=== PATIENT | male | born 1960 | race African-American/Black ===

== ENCOUNTER 2022-09-26 16:50 | Inpatient (IN) | payer MEDICARE, MEDICAID, SELFPAY ==
--- NOTE | ~2022-09-26 | XR_ITS ---
EXAMINATION: XR chest 1V DATE: 09/26/2022 17:24 INDICATION: Chest pain and shortness of breath TECHNIQUE: frontal view of the chest was obtained. COMPARISON: Chest CT dated 09/14/2016 FINDINGS: Evaluation of the lower lung zones somewhat limited by patient body habitus. Borderline heart size wi th pulmonary vascular congestion. No definitive airspace opacities, pulmonary edema, pleural effusion or pneumothorax. Three lead pacemaker/AICD seen with leads projecting over the expected locations of the right atrial appendage, apex of the right ventricle and overlying the left ventricle likely havi ng traversed the coronary sinus. IMPRESSION: 1. Borderline heart size with pulmonary vascular congestion. Reviewed, dictated and finalized at location A.
--- NOTE | ~2022-09-26 | XR_ITS ---
EXAMINATION: XR chest 1V portable INDICATION: Productive cough TECHNIQUE: Portable AP chest at 1258 hours COMPARISON: 09/26/2022 FINDINGS: There are patchy bilateral airspace opacities of the lungs. Cardiomegaly is noted. No pleur al effusion or pneumothorax. A triple lead cardiac pacemaker of the left chest wall ends with leads i n expected locations. IMPRESSION: 1. Diffuse lung disease, consistent with atelectasis versus pneumonia versus pulmonary edema. Reviewed, dictated and finalized at location B. IMPRESSION: 1. Diffuse lung disease, consistent with atelectasis versus pneumonia versus pu lmonary edema.
[2022-09-26 16:52] VITALS: BP 117/69; PULSE 99; RESP 20; TEMP 36.6; O2SAT 97
--- NOTE | 2022-09-26 16:56 | ECG_ITS ---
Measurements Intervals Talent Rate: 74 P: OK: 0 QRS: 119 QRSD: 187 T: -55 QT: 486 QTc: 541 Interpretive Statements SUSPECT ATRIAL FIBRILLATION WITH CONTROLLED VENTRICULAR RESPONSE INTRINSIC INTRAVENTRICULAR CONDUCTION ALTERNATES WITH ELECTRONIC VENTRICULAR PACING APPROPRIATE SENSING AND PACING IS DEMONSTRATE ABNORMAL ECG ABNORMAL RHYTHM ECG NO PREVIOUS ECG AVAILABLE FOR COMPARISON Electronically Signed On 09-26-2022 17:21:12 CDT by Kulwant Banks M.D.
[2022-09-26 17:15] LABS: Basophils Percent Auto 0.4 % (0.2-1.2); Eosinophils Absolute Auto 0.1 K/mm3 (0-0.3); Eosinophils Percent Auto 2.2 % (0-4.4); Hematocrit 44.8 % (42.0-52.0); Hemoglobin 13.9 g/dL (14.0-18.0); Immature Granulocyte Absolute 0.02 K/mm3 (0.00-0.031); Immature Granulocyte Percent A 0.4 % (0-0.5); Lymphocytes Absolute Auto 1.14 K/mm3 (0.9-3.2); Lymphocytes Percent Auto 24.7 % (18.3-44.2); Mean Corpuscular Hemoglobin 28.1 pg (26-34); Mean Corpuscular Volume 90.5 fl (80-100); Mean Platelet Volume 10.4 fl (7.4-10.4); Monocytes Absolute Auto 0.6 K/mm3 (0.1-0.6); Monocytes Percent Auto 11.9 % (2.6-8.5); Neutrophils Absolute Auto 2.8 K/mm3 (1.3-6.7); Neutrophils Percent Auto 60.4 % (45.5-73.1); Platelet Count Result 166 k/mm3 (150-375); Red Blood Count 4.95 M/mm3 (4.6-6.20); Red Cell Distribution Width 15.9 % (11.5-14.5); White Blood Count 4.6 K/mm3 (4.5-10.0)
[2022-09-26 17:25] LABS: INR 1.5; Prothrombin Time 18.5 Seconds (11.1-14.7)
[2022-09-26 17:26] LABS: Partial Thromboplastin Time 38.1 SECONDS (22.3-36.8)
[2022-09-26 17:27] LABS: Alanine Aminotransferase 21 U/L (6-50); Albumin Level 3.6 g/dL (3.5-5.1); Alkaline Phosphatase 66 U/L (38-126); Anion Gap 3 mmol/L (8-16); Aspartate Amino Transferase 22 U/L (17-59); Bilirubin,Total 0.5 mg/dL (0.2-1.3); Blood Urea Nitrogen 17 mg/dL (9-20); Calcium 8.2 mg/dL (8.4-10.2); Carbon Dioxide 27 mmol/L (22-30); Chloride 105 mmol/L (98-107); Estimated CRCL calculation 128 ml/min; Estimated Glomerular Filt Rate > 60; Glucose 104 mg/dL (65-110); Lipase 32 U/L (23-300); Potassium 3.8 mmol/L (3.4-5.0); Sodium 135 mmol/L (137-145)
[2022-09-26 17:39] LABS: Troponin I < 0.012 ng/mL (0.000-0.034)
[2022-09-26 18:41] VITALS: BP 142/99; PULSE 87; RESP 33; TEMP 36.4; O2SAT 99
[2022-09-26 18:52] VITALS: O2SAT 100
[2022-09-26 18:56] LABS: NT Pro B Type Natriuretic Pept 1580 pg/mL (19.9-100)
--- NOTE | 2022-09-26 19:25 | PC.NURSE ---
This RN assumed care of patient. Pt report was taken from ROBINSON Valdez.
[2022-09-26] MEDS: BUMETANIDE INJ 1 MG/4 ML VIAL IV PUSH (19:43)
--- NOTE | 2022-09-26 20:05 | ED.GENADULT ---
HPI - General Adult General Chief complaint: Chest Pain Stated complaint: chest pain/SOB/COPD Time Seen by Provider: 09/26/22 18:59 History of Present Illness HPI narrative: This is a 62-year-old male with morbid obesity and heart failure presenting ED with lower extremity edema, chest pain and shortness of breath. Patient's has chronic respiratory failure due to CHF morbid obesity and is typically on 2 L nasal cannula. However last 3 days he says that his breathing has become worse. Additionally he has increased swelling of his legs. He has been taking 80 mg of Lasix per day. He is also concerned because he has skin breakdown of his right lower extremity the feels may be infected. He denies fever chills nausea vomiting or diarrhea. He does state that he has a intermittent sharp, chest pain and chest that radiates to his left shoulder is worse with movement. He is not currently having that pain. The patient is attempting to get into [facility] as he is no longer capable of taking care of self at home. Related Data Allergies Allergy/AdvReac Type Severity Reaction Status Date / Time No Known Allergies Allergy Verified 09/26/22 18:57 [facility] Past Medical History Medical History CHF (congestive heart failure) Morbid obesity Exam Narrative: APPEARANCE: No apparent distress. Head: atraumatic. EYES: EOMI, NOSE: Atraumatic NECK: Trachea midline RESPIRATORY: No increased rate of breathing , decreased respiratory sounds CARDIOVASCULAR: RRR, significant edema of the lower extremities although physical exam is difficult due to body habitus ABDOMINAL: Non-distended MUSCULOSKELETAl: No obvious deformities NEURO: Alert. Moving 4/4 extremities SKIN:: skin breakdown with granulation tissue on the posterior aspect of the right lower extremity PSYCHIATRIC: Normal affect Course Vital Signs Vital signs: Vital Signs Temperature 97.8 F 09/26/22 16:52 Pulse Rate 99 09/26/22 16:52 Respiratory Rate 20 09/26/22 16:52 Blood Pressure 117/69 09/26/22 16:52 Pulse Oximetry 97 09/26/22 16:52 Oxygen Delivery Room Air 09/26/22 16:52 Temperature 97.6 F 09/26/22 18:41 Pulse Rate 87 09/26/22 18:41 Respiratory Rate 33 H 09/26/22 18:41 Blood Pressure 142/99 H 09/26/22 18:41 Pulse Oximetry 100 09/26/22 18:52 Oxygen Delivery Nasal Cannula 09/26/22 18:52 Oxygen Flow Rate 2 09/26/22 18:52 Medical Decision Making MDM Narrative Medical decision making narrative: -Presentation: 62-year-old male with morbid obesity and CHF presenting with increased dyspnea and lower extremity edema. patient has skin breakdown and induration of the right lower extremity with foul smell. Will be started on antibiotics for cellulitis. Patient no longer taking care of himself and will need to be admitted for placement. -DDX includes but is not limited to: CHF, fluid overload, skin breakdown, cellulitis -Co-morbidities complicating care: morbid obesity, CHF, hypertension, CAD, COPD, history of blood clots on anticoagulation -Social determinants of health: lives at home, disabled -Independent interpretation of studies: CBC normal. Metabolic panel within normal limits. BNP elevated at 1500, troponins undetectable. Chest x-ray showed cardiomegaly and pulmonary vascular congestion. Independent EKG interpretation: Rhythm [sinus], Rate [74], [place] -[normal],QRS [wide], QTC [normal], T waves -[negative for concerning inversions], ST Segments - [Negative for concerning elevations] Final interpretations: paced rhythm -Discussion of Management/Consultants: adam Bennett -Interventions: Bumex 1 g, 1 ancef -Shared decision making / Disposition: patient will be admitted the hospital for further management of his CHF and chronic respiratory failure. Patient's leg will need to be evaluated by wound management. Vital Signs Vital Signs
[2022-09-26] MEDS: ceFAZolin 1 GM/NS 50 ML 1 GM/50 ML BAG IVPB (20:38)
--- NOTE | 2022-09-26 20:55 | PM.IMHP ---
H&P: HPI History of Present Illness Date/Time: 09/26/22 20:55 Chief Complaint: Leg wound. Narrative: This is a 62-year-old male with past medical history significant for morbid obesity, atrial fibrillation rate controlled anticoagulated, pacemaker insitu, type 2 diabetes mellitus, asthma, congestive heart failure. Patient presents to the emergency room with complaints of worsening right lower extremity edema with leg ulcer on fall summary discharge, patient denies any fevers, rigors, chills, cough, sputum production, shortness of breath, syncope, near syncope, no lightheadedness, no PND no orthopnea. Has had chest pain on and off localized to the retrosternal area, did not try anything at home for the pain he did take his usual medications. preliminary workup was significant for brain natriuretic peptide is 1580, troponins x2 less than 0.012, chest x-ray was significant for pulmonary vascular congestion rest of chemistry panel without any abnormalities most of the workup has been essentially nonrevealing. On physical exam patient was noted to have a skin tear in and ulcer of the right lower extremity with copious amount of foul odor discharge. Patient states that he has been like this for the last 3-4 days. Patient uses walker and cane as an aid, denies any falls recently. Patient is been admitted for further evaluation management and treatment. EXAMINATION: XR chest 1V DATE: 09/26/2022 17:24 INDICATION: Chest pain and shortness of breath TECHNIQUE: frontal view of the chest was obtained. COMPARISON: Chest CT dated 09/14/2016 FINDINGS: Evaluation of the lower lung zones somewhat limited by patient body habitus. Borderline heart size with pulmonary vascular congestion. No definitive airspace opacities, pulmonary edema, pleural effusion or pneumothorax. Three lead pacemaker/AICD seen with leads projecting over the expected locations of the right atrial appendage, apex of the right ventricle and overlying the left ventricle likely having traversed the coronary sinus.? IMPRESSION: 1. Borderline heart size with pulmonary vascular congestion. Rate 74 TX 0 QRSd 187 QT 486 QTc 541 --[place]-- P QRS 119 T -55 SUSPECT ATRIAL FIBRILLATION WITH CONTROLLED VENTRICULAR RESPONSE INTRINSIC INTRAVENTRICULAR CONDUCTION ALTERNATES WITH ELECTRONIC VENTRICULAR PACING APPROPRIATE SENSING AND PACING IS DEMONSTRATE ABNORMAL ECG ABNORMAL RHYTHM ECG NO PREVIOUS ECG AVAILABLE FOR COMPARISON Electronically Signed On 09-26-2022 17:21:12 CDT by Kulwant Banks Review of Systems Review of Systems: B/L LE edema, RLE wound, discharge. Constitutional: Constitutional: Denies chills, Denies fatigue, Denies fever(s), Denies frequent falls, Denies malaise, Denies night sweats and Denies weakness Eyes: Eyes: Denies change in vision ENT: Denies dysphagia, Denies vertigo, Denies dizziness and Denies odynophagia Cardiovascular: Cardiovascular: Reports leg ulcers, Reports leg edema, Denies lightheadedness, Denies radiating jaw, neck or arm pain and Denies palpitations Respiratory: Respiratory: Denies cough, Denies excessive phlegm production, Denies pain on inspiration and Denies dyspnea Gastrointestinal: Gastrointestinal: Denies abdominal pain, Denies dyspepsia, Denies heartburn, Denies diarrhea, Denies nausea and Denies vomiting Genitourinary: Genitourinary: Denies dysuria, Denies flank pain and Reports scrotal swelling Musculoskeletal: Musculoskeletal: Reports back pain Integumentary/Breasts: Skin/Breast: Reports skin ulcer (RLE) Neurologic: Denies vertigo, Denies dizziness, Denies focal weakness and Denies Sensory deficit (Neuro) Psychiatric: Psychiatric: Reports no additional psychiatric complaints and Reports as per HPI Endocrine: Endocrine: Denies cold intolerance, Denies flushing, Denies heat intolerance, Denies polyphagia, Denies polydipsia and Denies palpitations Hematologic/Lymphatic: Hematologic/Lymphatic: Reports no additional hematologic/
[2022-09-26 21:06] LABS: Troponin I < 0.012 ng/mL (0.000-0.034)
[2022-09-26 21:21] VITALS: O2SAT 98
[2022-09-26 21:50] VITALS: BMI 77.5
[2022-09-26 21:56] VITALS: BP 138/87; PULSE 75; RESP 20; TEMP 35.6; O2SAT 98
--- NOTE | 2022-09-26 22:04 | ADMGEN ---
This patient, Manny Garcia Sr., was admitted to Medical Room 251-01. Patient/family oriented to hospital policies and general routines including ID bracelet, bed and alarms, visiting hours, pain management, procedures, bathroom and other care routines, personal items, smoking policy, room service/diet, and visiting hours. Information on how to activate the Rapid Response Team has been discussed. Patient/Family are encouraged to report perceived risks to care and to ask questions if they do not understand what they are told or what they should do.
[2022-09-26] MEDS: ACETAMINOPHEN 500 MG TABLET 1000 MG PO (23:42)
[2022-09-27] VITALS (19 sets, daily range): BP systolic 107–118; BP diastolic 54–70; PULSE 70–97; RESP 18–20; TEMP 35.7–36.6; O2SAT 10–98
--- NOTE | 2022-09-27 | ECHO_ITS ---
Patient Info Name: Manny Garcia Age: 62 years : 1960 Gender: Male Ht: 71 in Wt: 556 lbs BSA: 3.72 m2 HR: 86 bpm BP: 111 / 70 mmHg Heart Rhythm: Indeterminant Technical Quality: Poor Exam Date: 09/27/2022 9:17 AM Exam Location: [facility] Pulmonary Patient Status: Inpatient Admit Date: 09/26/2022 Staff Ordering Physician: Abby Bennett MD Detective [place]: Billy Gunn RDCS Attending Provider: Abby Bennett MD Referring Physician: Donald CROWDER; Exam Type: CA echo doppler color flow Study Info Indications - Leg swelling Complete two-dimensional, color flow and Doppler transthoracic echocardiogram is performed. Reason for Poor Study: poor echocardiographic windows Summary 1. Technically very difficult study with limited views. Patient refused Definity. 2. There is mildly increased left ventricular wall thickness. 3. Left ventricular chamber dimension is moderately enlarged. 4. The left ventricular endocardial borders were not well visualized, and patient refused Definity. Unable to estimate left ventricular ejection fraction on this study. 5. Right ventricular chamber dimension is normal. 6. Right ventricular systolic function is normal. 7. Linear artifact in right ventricle suggestive of catheter(s), pacemaker lead(s), or ICD lead(s). 8. Linear artifact in the right atrium suggestive of catheter(s), pacemaker lead(s), or ICD lead(s). 9. No significant valvular disease appreciated on this study. Left Ventricle Left ventricular chamber dimension is moderately enlarged. There is mildly increased left ventricular wall thickness. The left ventricular endocardial borders were not well visualized, and patient refused Definity. Unable to estimate left ventricular ejection fraction on this study. Right Ventricle Linear artifact in right ventricle suggestive of catheter(s), pacemaker lead(s), or ICD lead(s). Right ventricular chamber dimension is normal. Right ventricular systolic function is normal. Left Atria Left atrial chamber dimension is normal. Right Atria Linear artifact in the right atrium suggestive of catheter(s), pacemaker lead(s), or ICD lead(s). Right atrial chamber dimension is normal. Atrial Septum Not well visualized. Aortic Valve The aortic valve is not well visualized. There is no aortic valve stenosis. There is no aortic valve regurgitation. Pulmonic Valve The pulmonic valve is not well visualized. Mitral Valve There is trace mitral valve regurgitation. The mitral valve annulus is mildly calcified. Tricuspid Valve There is trace tricuspid valve regurgitation. Pericardium/Pleural The pericardium appears epicardial fat pad. There is no pericardial effusion. Inferior Vena Cava Dilated inferior vena cava with >50% collapse upon inspiration consistent with elevated right atrial pressure, 8 mmHg. Aorta The aortic root size at the sinus of Valsalva is normal. Left Ventricular Outflow Tract Name Value Normal LVOT 2D LVOT Diameter 2.0 cm LVOT Doppler LVOT Peak Gradient 6 mmHg LVOT Mean Gradient 3 mmHg LVOT VTI 25 cm LVOT VTI/AV VTI Ratio
[2022-09-27 00:05] LABS: Troponin I < 0.012 ng/mL (0.000-0.034)
[2022-09-27] MEDS: HYDROcodone/acetaminophen (*CRX) 10-325 MG TABLET 1 TAB PO ×5 (00:47→20:45)
[2022-09-27] MEDS: LEVOTHYROXINE SODIUM 88 MCG TABLET PO (05:39)
[2022-09-27] MEDS: ceFAZolin 1 GM/NS 50 ML 1 GM/50 ML BAG IVPB (05:39)
[2022-09-27 07:55] LABS: Hematocrit 43.9 % (42.0-52.0); Hemoglobin 13.7 g/dL (14.0-18.0); Mean Corpuscular HGB Conc 31.2 g/dl (32-36); Mean Corpuscular Hemoglobin 28.5 pg (26-34); Mean Corpuscular Volume 91.3 fl (80-100); Mean Platelet Volume 10.4 fl (7.4-10.4); Platelet Count Result 150 k/mm3 (150-375); Red Blood Count 4.81 M/mm3 (4.6-6.20); Red Cell Distribution Width 15.8 % (11.5-14.5); White Blood Count 5.5 K/mm3 (4.5-10.0)
[2022-09-27 08:05] LABS: Alanine Aminotransferase 19 U/L (6-50); Albumin Level 3.4 g/dL (3.5-5.1); Alkaline Phosphatase 63 U/L (38-126); Anion Gap 2 mmol/L (8-16); Aspartate Amino Transferase 21 U/L (17-59); Bilirubin,Total 0.7 mg/dL (0.2-1.3); Blood Urea Nitrogen 14 mg/dL (9-20); Calcium 7.8 mg/dL (8.4-10.2); Carbon Dioxide 33 mmol/L (22-30); Chloride 103 mmol/L (98-107); Estimated CRCL calculation 138 ml/min; Estimated Glomerular Filt Rate > 60; Glucose 108 mg/dL (65-110); Potassium 3.8 mmol/L (3.4-5.0); Sodium 138 mmol/L (137-145)
[2022-09-27 08:39] LABS: Glucose Point of Care 106 mg/dl (65-105)
[2022-09-27] MEDS: BUMETANIDE 1 MG TABLET 2 MG PO (09:56)
[2022-09-27] MEDS: ASPIRIN 81 MG ENTERIC TABLET PO (09:57)
[2022-09-27] MEDS: AMIODARONE HCL 200 MG TABLET 400 MG BY MOUTH ×2 (09:57→16:15)
[2022-09-27] MEDS: SPIRONOLACTONE 50 MG TABLET 100 MG PO (09:57)
[2022-09-27] MEDS: carvediloL 12.5 MG TABLET PO ×2 (09:57→20:46)
[2022-09-27] MEDS: IPRATROPIUM BR 0.02% INH SOLN 0.5 MG/2.5 ML VIAL INHALATION ×2 (09:57→19:54)
[2022-09-27] MEDS: SACUBITRIL/VALSARTAN 49-51 MG TABLET 1 TABLET PO ×2 (09:58→16:15)
[2022-09-27] MEDS: ALBUTEROL SULFATE NEB 2.5 MG/3 ML INH INHALATION ×2 (09:58→19:54)
[2022-09-27] MEDS: ERYTHROMYCIN OPHTH OINTMENT 1 GM TUBE 1 APPLIC RIGHT EYE ×2 (09:58→16:15)
[2022-09-27 11:50] LABS: Glucose Point of Care 97 mg/dl (65-105)
[2022-09-27] MEDS: MICONAZOLE NITRATE 2% CREAM 30 GM TUBE 1 APPLIC TOPICAL ×2 (12:16→23:29)
--- NOTE | 2022-09-27 12:55 | PM.IMPN ---
Progress Note: A&P Assessment and Plan (1) Respiratory failure: Code(s): J96.90 - Respiratory failure, unspecified, unspecified whether with hypoxia or hypercapnia Status: Acute Assessment and Plan: Patient is usually on supplemental oxygen 2 L by nasal cannula as needed. Wean oxygen to maintain O2 saturation greater than 90%. Chest x-ray with borderline heart size and pulmonary vascular congestion. Unable to get bilateral lower extremity Doppler ultrasounds due to the size of patient's legs. (2) CHF (congestive heart failure): Code(s): I50.9 - Heart failure, unspecified Status: Acute Assessment and Plan: BNP only slightly elevated Started on Bumex 2 mg IV b.i.d.. Daily weights, strict I&Os, fall precautions Echocardiogram ordered. Keep potassium greater than 4 and serum magnesium greater than 2. Monitor kidney function while on IV Bumex (3) Adult failure to thrive: Code(s): R62.7 - Adult failure to thrive Status: Acute Assessment and Plan: PT OT consult supportive care likely secondary to patient's morbid obesity (4) Skin breakdown: Code(s): R23.8 - Other skin changes Status: Acute Assessment and Plan: Local care wound care consult Wound care believes that patient has skin breakdown is due to edema and not an acute infection. Antibiotics discontinued at this time and miconazole cream added (5) Morbid obesity: Code(s): E66.01 - Morbid (severe) obesity due to excess calories Status: Acute Assessment and Plan: 1800 calorie restricted diet Lifestyle and diet modifications (6) Type 2 diabetes mellitus: Code(s): E11.9 - Type 2 diabetes mellitus without complications Status: Acute Assessment and Plan: Insulin Lispro sliding scale, Accu-checks qAc and HS and Hold oral hypoglycemics Initiate hypoglycemic precautions Obtain a HgbA1c Hold Farxiga Subjective Date/time seen: 09/27/22 12:55 Interval history: Patient states that he is still experiencing some shortness of breath but it has improved since he came from the hospital. Patient believes that he will likely need rehab at discharge. He barely walks and uses a walker when necessary. He states that he does live alone and has the help of family and kennel helper. He denies orthopnea, chronic cough, chest pain, nausea vomiting. Review of Systems Review of Systems: All systems reviewed & are unremarkable except as noted in HPI and below Exam Narrative: GENERAL: Comfortable, no acute distress, morbid obesity HENMT: moist mucous membranes EYES: EOM intact b/l NECK: no lymphadenopathy RESPIRATORY: clear to auscultation CARDIO: RRR GI: soft, nontender, bowel sounds present SKIN: no rashes EXTREMITIES: +2 edema from mid thigh down, skin discoloration on the back sides of patient's bilateral legs as well as excoriation and skin breakdown on the back of right calf, right leg tenderness to palpation Objective Data Vital Signs Vital Signs: Vital Signs - 24 hr 09/26/22 16:52 09/26/22 18:41 09/26/22 18:52 Temperature 97.8 F 97.6 F Pulse Rate 99 87 Respiratory Rate 20 33 H Blood Pressure 117/69 142/99 H Pulse Oximetry 97 99 100 Oxygen Delivery Room Air Room Air Nasal Cannula Oxygen Flow Rate 2 09/26/22 21:21 09/26/22 21:56 09/26/22 22:13 Temperature 96.1 F L Pulse Rate 75 Respiratory Rate 20 Blood Pressure 138/87 Pulse Oximetry 98 98 Oxygen Delivery Room Air Room Air Oxygen Flow Rate 09/27/22 00:00 09/27/22 05:05 09/27/22 04:00 Temperature 96.3 F L Pulse Rate 79 86 78 Respiratory Rate 20 Blood Pressure 111/70 Pulse Oximetry 10 L Oxygen Delivery Oxygen Flow Rate 09/27/22 09:57 09/27/22 09:57 09/27/22 10:01 Temperature Pulse Rate 77 85 Respiratory Rate Blood Pressure Pulse Oximetry 95 Oxygen Delivery Nasal Cannu
--- NOTE | 2022-09-27 15:33 | PCPTNOTE ---
Attempted PT evaluation, pt refused stating he just got to the hospital and his wound will be wrapped tomorrow. Will follow.
[2022-09-27] MEDS: BUMETANIDE INJ 2.5 MG/10 ML VIAL 2 MG IV PUSH (16:14)
[2022-09-27] MEDS: RIVAROXABAN 20 MG TABLET PO (16:15)
[2022-09-27 17:09] LABS: Glucose Point of Care 89 mg/dl (65-105)
[2022-09-27] MEDS: FLUTICASONE PROPIONATE 0.05% NA SPR 16 GM BTL (*BKC) 1 SPRAY NASAL (20:46)
[2022-09-27 23:27] LABS: Glucose Point of Care 110 mg/dl (65-105)
[2022-09-28] VITALS (19 sets, daily range): BP systolic 100–108; BP diastolic 50–66; PULSE 70–95; RESP 14–20; TEMP 35.9–36.4; O2SAT 95–99
[2022-09-28 05:22] LABS: Basophils Percent Auto 0.4 % (0.2-1.2); Eosinophils Absolute Auto 0.2 K/mm3 (0-0.3); Eosinophils Percent Auto 3.5 % (0-4.4); Immature Granulocyte Absolute 0.02 K/mm3 (0.00-0.031); Immature Granulocyte Percent A 0.4 % (0-0.5); Lymphocytes Absolute Auto 1.31 K/mm3 (0.9-3.2); Lymphocytes Percent Auto 26.8 % (18.3-44.2); Mean Corpuscular HGB Conc 31.1 g/dl (32-36); Mean Corpuscular Hemoglobin 28.4 pg (26-34); Mean Corpuscular Volume 91.3 fl (80-100); Mean Platelet Volume 10.1 fl (7.4-10.4); Monocytes Absolute Auto 0.6 K/mm3 (0.1-0.6); Monocytes Percent Auto 11.5 % (2.6-8.5); Neutrophils Absolute Auto 2.8 K/mm3 (1.3-6.7); Neutrophils Percent Auto 57.4 % (45.5-73.1); Platelet Count Result 144 k/mm3 (150-375); Red Blood Count 4.93 M/mm3 (4.6-6.20); Red Cell Distribution Width 15.7 % (11.5-14.5); White Blood Count 4.9 K/mm3 (4.5-10.0)
[2022-09-28 05:32] LABS: Alanine Aminotransferase 17 U/L (6-50); Albumin Level 3.2 g/dL (3.5-5.1); Alkaline Phosphatase 56 U/L (38-126); Anion Gap 3 mmol/L (8-16); Aspartate Amino Transferase 18 U/L (17-59); Bilirubin,Total 0.5 mg/dL (0.2-1.3); Blood Urea Nitrogen 16 mg/dL (9-20); Calcium 7.7 mg/dL (8.4-10.2); Carbon Dioxide 29 mmol/L (22-30); Chloride 101 mmol/L (98-107); Estimated CRCL calculation 138 ml/min; Estimated Glomerular Filt Rate > 60; Glucose 115 mg/dL (65-110); Sodium 133 mmol/L (137-145)
[2022-09-28] MEDS: LEVOTHYROXINE SODIUM 88 MCG TABLET PO (05:55)
--- NOTE | 2022-09-28 06:15 | PC.NURSE ---
patient refused HS accucheck. states he is not diabetic and that his blood sugars have been normal this admission. states that he takes farxiga for kidney issues but not for diabetes.
[2022-09-28 08:07] LABS: Glucose Point of Care 101 mg/dl (65-105)
[2022-09-28] MEDS: SPIRONOLACTONE 50 MG TABLET 100 MG PO (08:33)
[2022-09-28] MEDS: ASPIRIN 81 MG ENTERIC TABLET PO (08:33)
[2022-09-28] MEDS: AMIODARONE HCL 200 MG TABLET 400 MG BY MOUTH ×2 (08:33→16:15)
[2022-09-28] MEDS: SACUBITRIL/VALSARTAN 49-51 MG TABLET 1 TABLET PO ×2 (08:33→16:15)
[2022-09-28] MEDS: ERYTHROMYCIN OPHTH OINTMENT 1 GM TUBE 1 APPLIC RIGHT EYE (08:34)
[2022-09-28] MEDS: MICONAZOLE NITRATE 2% CREAM 30 GM TUBE 1 APPLIC TOPICAL ×2 (08:34→19:58)
[2022-09-28] MEDS: IPRATROPIUM BR 0.02% INH SOLN 0.5 MG/2.5 ML VIAL INHALATION ×2 (08:48→21:01)
[2022-09-28] MEDS: ALBUTEROL SULFATE NEB 2.5 MG/3 ML INH INHALATION ×3 (08:48→21:01)
[2022-09-28] MEDS: BUMETANIDE INJ 2.5 MG/10 ML VIAL 2 MG IV PUSH ×2 (11:22→16:15)
--- NOTE | 2022-09-28 11:58 | PM.IMPN ---
Progress Note: A&P Assessment and Plan (1) Respiratory failure: Qualifiers: Chronicity: acute Respiratory failure complication: hypoxia Qualified Code(s): J96.01 - Acute respiratory failure with hypoxia Code(s): J96.90 - Respiratory failure, unspecified, unspecified whether with hypoxia or hypercapnia Status: Acute Assessment and Plan: Patient is usually on supplemental oxygen 2 L by nasal cannula as needed. Wean oxygen to maintain O2 saturation greater than 90%. Chest x-ray with borderline heart size and pulmonary vascular congestion. Unable to get bilateral lower extremity Doppler ultrasounds due to the patient's body habitus (2) CHF (congestive heart failure): Qualifiers: Heart failure type: unspecified Heart failure chronicity: acute on chronic Qualified Code(s): I50.9 - Heart failure, unspecified Code(s): I50.9 - Heart failure, unspecified Status: Acute Assessment and Plan: BNP only slightly elevated Started on Bumex 2 mg IV b.i.d.. Daily weights, strict I&Os, fall precautions Echocardiogram could not determine patient's ejection fraction, very limited exam. Keep potassium greater than 4 and serum magnesium greater than 2. Monitor kidney function while on IV Bumex Scrotal elevation for scrotal edema and support. (3) COPD (chronic obstructive pulmonary disease): Qualifiers: COPD type: unspecified COPD Qualified Code(s): J44.9 - Chronic obstructive pulmonary disease, unspecified Code(s): J44.9 - Chronic obstructive pulmonary disease, unspecified Status: Acute Assessment and Plan: Monitor vital signs, I&Os, neuro status and patient is a fall risk Monitor serum electrolytes, cultures and CBC Monitor Oxygen saturation, Oxygen via NC; wean oxygen as tolerated, keep SpO2 greater than 88% Duonebz q6H and Albuterol q2H prn Solu-Medrol 125 mg x 1 then 40 mg IVq12H (4) Adult failure to thrive: Code(s): R62.7 - Adult failure to thrive Status: Acute Assessment and Plan: PT OT consult supportive care likely secondary to patient's morbid obesity (5) Skin breakdown: Code(s): R23.8 - Other skin changes Status: Acute Assessment and Plan: Local care wound care consult Wound care believes that patient has skin breakdown is due to edema and not an acute infection. Antibiotics discontinued at this time and miconazole cream added (6) Morbid obesity: Code(s): E66.01 - Morbid (severe) obesity due to excess calories Status: Acute Assessment and Plan: 1800 calorie restricted diet Lifestyle and diet modifications (7) Type 2 diabetes mellitus: Code(s): E11.9 - Type 2 diabetes mellitus without complications Status: Acute Assessment and Plan: Insulin Lispro sliding scale, Accu-checks qAc and HS and Hold oral hypoglycemics Initiate hypoglycemic precautions Obtain a HgbA1c Hold Farxisc Subjective Date/time seen: 09/28/22 11:58 Interval history: Patient doing well today. Patient states that he has intermittent Chest pain and shortness of breath but he feels as if it is improving. On exam he did have diffuse expiratory wheezing. patient's troponin on admission were within normal limits. Patient states that when he moves it exacerbates his chest pain when he points to the chest pain is more towards his shoulder and is worse with range of motion. Patient states that he did not want to work with physical therapy due to his right lower extremity pain. He states that where his leg is excoriated is very painful and he would be unable to work with physical therapy. Talked to patient about working with therapy in hopes to get him in to a potential rehab. Patient stated that he would attempt to work with therapy today. Exam Narrative: GENERAL: Comfortable, no acute distress, morbid obesity [facility]
[2022-09-28] MEDS: methylPREDNISolone SOD SUCC 125 MG VIAL IV PUSH (12:32)
--- NOTE | 2022-09-28 13:25 | P.CDI_ITS ---
CDI Query Clarification Request Documented history of CHF. CHF noted on the assessment and plan. Elevated BNP on 09/26/22 lab work. Bumex listed as a home medication. Patient receiving Bumex. Pulmonary vascular congestion noted on the 09/26 chest xray. Please specify type and acuity of heart failure if known. * Acute * Chronic * Acute on Chronic * Unknown * Systolic * Diastolic * Combined Systolic and Diastolic * Unknown
[2022-09-28] MEDS: HYDROcodone/acetaminophen (*CRX) 10-325 MG TABLET 1 TAB PO ×2 (15:39→19:56)
[2022-09-28] MEDS: RIVAROXABAN 20 MG TABLET PO (16:15)
[2022-09-28] MEDS: FLUTICASONE PROPIONATE 0.05% NA SPR 16 GM BTL (*BKC) 1 SPRAY NASAL (19:57)
[2022-09-28] MEDS: CALCIUM CARBONATE (TUMS) 500 MG (200 MG ELEMENTAL) PO (22:33)
[2022-09-29] VITALS (19 sets, daily range): BP systolic 101–122; BP diastolic 60–83; PULSE 66–97; RESP 16–18; TEMP 36.4–36.6; O2SAT 95–100
[2022-09-29] MEDS: HYDROcodone/acetaminophen (*CRX) 10-325 MG TABLET 1 TAB PO ×4 (02:02→21:55)
[2022-09-29] MEDS: LEVOTHYROXINE SODIUM 88 MCG TABLET PO (05:08)
[2022-09-29 05:18] LABS: Hematocrit 45.8 % (42.0-52.0); Hemoglobin 14.6 g/dL (14.0-18.0); Mean Corpuscular HGB Conc 31.9 g/dl (32-36); Mean Corpuscular Hemoglobin 28.3 pg (26-34); Mean Corpuscular Volume 88.8 fl (80-100); Mean Platelet Volume 10.5 fl (7.4-10.4); Platelet Count Result 184 k/mm3 (150-375); Red Blood Count 5.16 M/mm3 (4.6-6.20); Red Cell Distribution Width 15.2 % (11.5-14.5); White Blood Count 4.4 K/mm3 (4.5-10.0)
[2022-09-29 05:34] LABS: Alanine Aminotransferase 20 U/L (6-50); Albumin Level 3.5 g/dL (3.5-5.1); Alkaline Phosphatase 60 U/L (38-126); Anion Gap 1 mmol/L (8-16); Aspartate Amino Transferase 21 U/L (17-59); Bilirubin,Total 0.4 mg/dL (0.2-1.3); Blood Urea Nitrogen 19 mg/dL (9-20); Calcium 7.9 mg/dL (8.4-10.2); Carbon Dioxide 32 mmol/L (22-30); Chloride 98 mmol/L (98-107); Estimated CRCL calculation 152 ml/min; Estimated Glomerular Filt Rate > 60; Glucose 167 mg/dL (65-110); Potassium 4.2 mmol/L (3.4-5.0); Sodium 131 mmol/L (137-145)
[2022-09-29 07:53] LABS: Hemoglobin A1C 6.1 % (<5.7)
[2022-09-29] MEDS: AMIODARONE HCL 200 MG TABLET 400 MG BY MOUTH ×2 (08:02→18:00)
[2022-09-29] MEDS: SPIRONOLACTONE 50 MG TABLET 100 MG PO (08:03)
[2022-09-29] MEDS: ASPIRIN 81 MG ENTERIC TABLET PO (08:04)
[2022-09-29] MEDS: SACUBITRIL/VALSARTAN 49-51 MG TABLET 1 TABLET PO ×2 (08:04→18:14)
[2022-09-29] MEDS: MICONAZOLE NITRATE 2% CREAM 30 GM TUBE 1 APPLIC TOPICAL (08:09)
[2022-09-29] MEDS: ERYTHROMYCIN OPHTH OINTMENT 1 GM TUBE 1 APPLIC RIGHT EYE ×2 (08:19→20:11)
[2022-09-29] MEDS: BUMETANIDE INJ 2.5 MG/10 ML VIAL 2 MG IV PUSH ×2 (08:19→18:15)
[2022-09-29] MEDS: IPRATROPIUM BR 0.02% INH SOLN 0.5 MG/2.5 ML VIAL INHALATION ×2 (08:42→20:47)
[2022-09-29] MEDS: ALBUTEROL SULFATE NEB 2.5 MG/3 ML INH INHALATION ×2 (08:42→20:47)
--- NOTE | 2022-09-29 13:46 | PM.IMPN ---
Progress Note: A&P Assessment and Plan (1) Respiratory failure: Qualifiers: Chronicity: acute Respiratory failure complication: hypoxia Qualified Code(s): J96.01 - Acute respiratory failure with hypoxia Code(s): J96.90 - Respiratory failure, unspecified, unspecified whether with hypoxia or hypercapnia Status: Acute Assessment and Plan: Patient is usually on supplemental oxygen 2 L by nasal cannula as needed. Wean oxygen to maintain O2 saturation greater than 90%. Chest x-ray with borderline heart size and pulmonary vascular congestion. Unable to get bilateral lower extremity Doppler ultrasounds due to the patient's body habitus. (2) CHF (congestive heart failure): Qualifiers: Heart failure chronicity: acute on chronic Heart failure type: unspecified Qualified Code(s): I50.9 - Heart failure, unspecified Code(s): I50.9 - Heart failure, unspecified Status: Acute Assessment and Plan: BNP only slightly elevated. Started on Bumex 2 mg IV b.i.d. Daily weights, strict I&Os, fall precautions. Echocardiogram could not determine patient's ejection fraction, very limited exam. Keep potassium greater than 4 and serum magnesium greater than 2. Monitor kidney function while on IV Bumex. Scrotal elevation for scrotal edema and support. (3) COPD (chronic obstructive pulmonary disease): Qualifiers: COPD type: unspecified COPD Qualified Code(s): J44.9 - Chronic obstructive pulmonary disease, unspecified Code(s): J44.9 - Chronic obstructive pulmonary disease, unspecified Status: Acute Assessment and Plan: Monitor Oxygen saturation, Oxygen via NC; wean oxygen as tolerated, keep SpO2 greater than 88% Duonebz q6H and Albuterol q2H prn Patient refuses to take steroids due to stomach upset (4) Adult failure to thrive: Code(s): R62.7 - Adult failure to thrive Status: Acute Assessment and Plan: PT OT consult supportive care likely secondary to patient's morbid obesity (5) Skin breakdown: Code(s): R23.8 - Other skin changes Status: Acute Assessment and Plan: Local care Wound care consult Wound care believes that patient has skin breakdown is due to edema and not an acute infection. Antibiotics discontinued at this time and miconazole cream added (6) Morbid obesity: Code(s): E66.01 - Morbid (severe) obesity due to excess calories Status: Acute Assessment and Plan: 1800 calorie restricted diet Lifestyle and diet modifications (7) Type 2 diabetes mellitus: Code(s): E11.9 - Type 2 diabetes mellitus without complications Status: Acute Assessment and Plan: Insulin Lispro sliding scale, Accu-checks qAc and HS and Hold oral hypoglycemics Initiate hypoglycemic precautions HgbA1c 6.1 Hold Farxiga Subjective Date/time seen: 09/29/22 13:46 Interval history: Patient states that he is feeling better today. Patient did not want to take the steroids due to it causing upset stomach. He still has some mild expiratory wheezing that is likely due from his COPD/CHF. Patient states that he is breathing more easy today. Patient continues to have pain on the back of his right calf. He is working with PT and OT. I believe the best thing for the patient would be getting into a rehab and getting him back on his feet. Exam Narrative: GENERAL: Comfortable, no acute distress, morbid obesity HENMT: moist mucous membranes EYES: EOM intact b/l NECK: no lymphadenopathy RESPIRATORY: Diffuse expiratory wheezes CARDIO: RRR GI: soft, nontender, bowel sounds present SKIN: no rashes EXTREMITIES: +1 edema from mid thigh down, skin discoloration on the back sides of patient's bilateral legs as well as excoriation and skin breakdown on the back of right calf, right leg tenderness to palpation. Scrotal edema present. Objecti
--- NOTE | 2022-09-29 14:28 | PC.NURSE ---
patient alert and oriented x4, VSS. patient refusing accu checks and any medication that can increase glucose level. Education given about why it was ordered. Patient states he is not a diabetic. Education given to which meds increase glucose levels. Patient spoke with [facility]. Care continued.
[2022-09-29 17:20] LABS: Glucose Point of Care 152 mg/dl (65-105)
[2022-09-29] MEDS: RIVAROXABAN 20 MG TABLET PO (18:15)
[2022-09-29] MEDS: carvediloL 12.5 MG TABLET PO (19:58)
[2022-09-29] MEDS: FLUTICASONE PROPIONATE 0.05% NA SPR 16 GM BTL (*BKC) 1 SPRAY NASAL (21:55)
[2022-09-30] VITALS (15 sets, daily range): BP systolic 99–117; BP diastolic 56–62; PULSE 69–102; RESP 16–21; TEMP 36.1–36.6; O2SAT 93–100
[2022-09-30] MEDS: HYDROcodone/acetaminophen (*CRX) 10-325 MG TABLET 1 TAB PO ×3 (04:40→22:41)
[2022-09-30 05:05] LABS: Hemoglobin 13.9 g/dL (14.0-18.0); Mean Corpuscular HGB Conc 31.6 g/dl (32-36); Mean Corpuscular Hemoglobin 28.6 pg (26-34); Mean Corpuscular Volume 90.5 fl (80-100); Mean Platelet Volume 10.1 fl (7.4-10.4); Platelet Count Result 191 k/mm3 (150-375); Red Blood Count 4.86 M/mm3 (4.6-6.20); Red Cell Distribution Width 15.4 % (11.5-14.5); White Blood Count 6.8 K/mm3 (4.5-10.0)
[2022-09-30 05:09] LABS: Alanine Aminotransferase 18 U/L (6-50); Albumin Level 3.2 g/dL (3.5-5.1); Alkaline Phosphatase 54 U/L (38-126); Anion Gap 1 mmol/L (8-16); Aspartate Amino Transferase 20 U/L (17-59); Bilirubin,Total 0.5 mg/dL (0.2-1.3); Blood Urea Nitrogen 22 mg/dL (9-20); Calcium 7.6 mg/dL (8.4-10.2); Carbon Dioxide 37 mmol/L (22-30); Chloride 96 mmol/L (98-107); Estimated CRCL calculation 117 ml/min; Estimated Glomerular Filt Rate > 60; Glucose 125 mg/dL (65-110); Potassium 3.6 mmol/L (3.4-5.0); Sodium 134 mmol/L (137-145)
[2022-09-30] MEDS: LEVOTHYROXINE SODIUM 88 MCG TABLET PO (05:17)
[2022-09-30] MEDS: MICONAZOLE NITRATE 2% CREAM 30 GM TUBE 1 APPLIC TOPICAL ×2 (06:06→20:22)
--- NOTE | 2022-09-30 06:44 | PC.NURSE ---
On 09/29/22-09/30/22, the license pending RN, Constantine No, provided care and completed [employer] documentation on this patient. I have reviewed the RNs documentation and agree with the findings.
[2022-09-30] MEDS: IPRATROPIUM BR 0.02% INH SOLN 0.5 MG/2.5 ML VIAL INHALATION (07:21)
[2022-09-30] MEDS: ALBUTEROL SULFATE NEB 2.5 MG/3 ML INH INHALATION (07:21)
[2022-09-30] MEDS: ERYTHROMYCIN OPHTH OINTMENT 1 GM TUBE 1 APPLIC RIGHT EYE ×2 (08:57→16:18)
[2022-09-30] MEDS: BUMETANIDE INJ 2.5 MG/10 ML VIAL 2 MG IV PUSH ×2 (08:57→16:19)
[2022-09-30] MEDS: AMIODARONE HCL 200 MG TABLET 400 MG BY MOUTH ×2 (08:57→16:18)
[2022-09-30] MEDS: carvediloL 12.5 MG TABLET PO (08:57)
[2022-09-30] MEDS: SPIRONOLACTONE 50 MG TABLET 100 MG PO (08:57)
[2022-09-30] MEDS: ASPIRIN 81 MG ENTERIC TABLET PO (08:57)
[2022-09-30] MEDS: SACUBITRIL/VALSARTAN 49-51 MG TABLET 1 TABLET PO ×2 (08:57→16:19)
--- NOTE | 2022-09-30 12:50 | P.PNIM_ITS ---
Progress Note: A&P Assessment and Plan (1) Respiratory failure: Qualifiers: Chronicity: acute Respiratory failure complication: hypoxia Qualified Code(s): J96.01 - Acute respiratory failure with hypoxia Code(s): J96.90 - Respiratory failure, unspecified, unspecified whether with hypoxia or hypercapnia Status: Acute Assessment and Plan: * Patient is usually on supplemental oxygen 2 L by nasal cannula as needed. * Wean oxygen to maintain O2 saturation greater than 90%. On room air. * Chest x-ray with borderline heart size and pulmonary vascular congestion. * Unable to get bilateral lower extremity Doppler ultrasounds due to the patient's body habitus. (2) CHF (congestive heart failure): Qualifiers: Heart failure chronicity: acute on chronic Heart failure type: unspecified Qualified Code(s): I50.9 - Heart failure, unspecified Code(s): I50.9 - Heart failure, unspecified Status: Acute Assessment and Plan: * BNP only slightly elevated. * Started on Bumex 2 mg IV b.i.d. * Daily weights, strict I&Os, fall precautions. * Echocardiogram could not determine patient's ejection fraction, very limited exam. * Keep potassium greater than 4 and serum magnesium greater than 2. * Monitor kidney function while on IV Bumex. * Scrotal elevation for scrotal edema and support. (3) COPD (chronic obstructive pulmonary disease): Qualifiers: COPD type: unspecified COPD Qualified Code(s): J44.9 - Chronic obstructive pulmonary disease, unspecified Code(s): J44.9 - Chronic obstructive pulmonary disease, unspecified Status: Acute Assessment and Plan: * Monitor Oxygen saturation, Oxygen via NC; wean oxygen as tolerated, keep SpO2 greater than 88% * Duonebz q6H and Albuterol q2H prn * Patient refuses to take steroids due to stomach upset * 09/30 patient with worsening cough and sputum production. Chest x-ray revealing atelectasis versus pneumonia versus pulmonary edema. Continue with IV diuretics and start ceftriaxone and doxycycline. Patient does have QT prolongation and is on amiodarone thus avoid QT prolonging agents. Patient is still refusing steroids. (4) Adult failure to thrive: Code(s): R62.7 - Adult failure to thrive Status: Acute Assessment and Plan: * PT OT consult * supportive care * likely secondary to patient's morbid obesity (5) Skin breakdown: Code(s): R23.8 - Other skin changes Status: Acute Assessment and Plan: * Local care * Wound care consult * Wound care believes that patient has skin breakdown is due to edema and not an acute infection. * Antibiotics discontinued at this time and miconazole cream added (6) Morbid obesity: Code(s): E66.01 - Morbid (severe) obesity due to excess calories Status: Acute Assessment and Plan: * 1800 calorie restricted diet * Lifestyle and diet modifications (7) Type 2 diabetes mellitus: Code(s): E11.9 - Type 2 diabetes mellitus without complications Status: Acute Assessment and Plan: * Insulin Lispro sliding scale, Accu-checks qAc and HS and Hold oral hypoglycemics * Initiate hypoglycemic precautions * HgbA1c 6.1 * Hold Farxiga Subjective Date/time seen: 09/30/22 12:50 Interval history: Patient states that he is breathing a little better today. He has been off of his oxyge
--- NOTE | 2022-09-30 12:50 | PM.IMPN ---
Progress Note: A&P Assessment and Plan (1) Respiratory failure: Qualifiers: Chronicity: acute Respiratory failure complication: hypoxia Qualified Code(s): J96.01 - Acute respiratory failure with hypoxia Code(s): J96.90 - Respiratory failure, unspecified, unspecified whether with hypoxia or hypercapnia Status: Acute Assessment and Plan: Patient is usually on supplemental oxygen 2 L by nasal cannula as needed. Wean oxygen to maintain O2 saturation greater than 90%. On room air. Chest x-ray with borderline heart size and pulmonary vascular congestion. Unable to get bilateral lower extremity Doppler ultrasounds due to the patient's body habitus. (2) CHF (congestive heart failure): Qualifiers: Heart failure chronicity: acute on chronic Heart failure type: unspecified Qualified Code(s): I50.9 - Heart failure, unspecified Code(s): I50.9 - Heart failure, unspecified Status: Acute Assessment and Plan: BNP only slightly elevated. Started on Bumex 2 mg IV b.i.d. Daily weights, strict I&Os, fall precautions. Echocardiogram could not determine patient's ejection fraction, very limited exam. Keep potassium greater than 4 and serum magnesium greater than 2. Monitor kidney function while on IV Bumex. Scrotal elevation for scrotal edema and support. (3) COPD (chronic obstructive pulmonary disease): Qualifiers: COPD type: unspecified COPD Qualified Code(s): J44.9 - Chronic obstructive pulmonary disease, unspecified Code(s): J44.9 - Chronic obstructive pulmonary disease, unspecified Status: Acute Assessment and Plan: Monitor Oxygen saturation, Oxygen via NC; wean oxygen as tolerated, keep SpO2 greater than 88% Duonebz q6H and Albuterol q2H prn Patient refuses to take steroids due to stomach upset 09/30 patient with worsening cough and sputum production. Chest x-ray revealing atelectasis versus pneumonia versus pulmonary edema. Continue with IV diuretics and start ceftriaxone and doxycycline. Patient does have QT prolongation and is on amiodarone thus avoid QT prolonging agents. Patient is still refusing steroids. (4) Adult failure to thrive: Code(s): R62.7 - Adult failure to thrive Status: Acute Assessment and Plan: PT OT consult supportive care likely secondary to patient's morbid obesity (5) Skin breakdown: Code(s): R23.8 - Other skin changes Status: Acute Assessment and Plan: Local care Wound care consult Wound care believes that patient has skin breakdown is due to edema and not an acute infection. Antibiotics discontinued at this time and miconazole cream added (6) Morbid obesity: Code(s): E66.01 - Morbid (severe) obesity due to excess calories Status: Acute Assessment and Plan: 1800 calorie restricted diet Lifestyle and diet modifications (7) Type 2 diabetes mellitus: Code(s): E11.9 - Type 2 diabetes mellitus without complications Status: Acute Assessment and Plan: Insulin Lispro sliding scale, Accu-checks qAc and HS and Hold oral hypoglycemics Initiate hypoglycemic precautions HgbA1c 6.1 Hold Farxiga Subjective Date/time seen: 09/30/22 12:50 Interval history: Patient states that he is breathing a little better today. He has been off of his oxygen without any difficulties. He still has some pain in his right calf but is continuing to work with therapy. He did state today that he developed a cough with sputum production. Plan to order a chest x-ray and sputum culture. He continues to refuse steroids for COPD. Exam Narrative: GENERAL: Comfortable, no acute distress, morbid obesity HENMT: moist mucous membranes EYES: EOM intact b/l NECK: no lymphadenopathy RESPIRATORY: Diffuse expiratory wheezes CARDIO: RRR GI: soft, nontender, bowel sounds present
[2022-09-30] MEDS: DOXYCYCLINE 100 MG/NS 100 ML 100 MG/100 ML BAG IVPB (14:04)
[2022-09-30] MEDS: RIVAROXABAN 20 MG TABLET PO (16:19)
[2022-09-30] MEDS: FLUTICASONE PROPIONATE 0.05% NA SPR 16 GM BTL (*BKC) 1 SPRAY NASAL (20:22)
[2022-10-01] VITALS (17 sets, daily range): BP systolic 104–108; BP diastolic 56–69; PULSE 68–107; RESP 16–20; TEMP 35.6–36.8; O2SAT 95–100
[2022-10-01] MEDS: DOXYCYCLINE 100 MG/NS 100 ML 100 MG/100 ML BAG IVPB (01:10)
[2022-10-01] MEDS: LEVOTHYROXINE SODIUM 88 MCG TABLET PO (05:44)
[2022-10-01] MEDS: IPRATROPIUM BR 0.02% INH SOLN 0.5 MG/2.5 ML VIAL INHALATION (08:20)
[2022-10-01] MEDS: ALBUTEROL SULFATE NEB 2.5 MG/3 ML INH INHALATION (08:20)
[2022-10-01] MEDS: AMIODARONE HCL 200 MG TABLET 400 MG BY MOUTH ×2 (10:06→17:30)
[2022-10-01] MEDS: ASPIRIN 81 MG ENTERIC TABLET PO (10:06)
[2022-10-01] MEDS: BUMETANIDE INJ 2.5 MG/10 ML VIAL 2 MG IV PUSH ×2 (10:06→17:35)
[2022-10-01] MEDS: MICONAZOLE NITRATE 2% CREAM 30 GM TUBE 1 APPLIC TOPICAL ×2 (10:07→20:25)
[2022-10-01] MEDS: metOLazone 5 MG TABLET PO (10:07)
[2022-10-01] MEDS: ERYTHROMYCIN OPHTH OINTMENT 1 GM TUBE 1 APPLIC RIGHT EYE ×2 (10:07→17:30)
[2022-10-01] MEDS: SPIRONOLACTONE 50 MG TABLET 100 MG PO (10:07)
[2022-10-01] MEDS: SACUBITRIL/VALSARTAN 49-51 MG TABLET 1 TABLET PO ×2 (10:07→17:30)
[2022-10-01] MEDS: carvediloL 12.5 MG TABLET PO ×2 (10:07→20:25)
[2022-10-01] MEDS: HYDROcodone/acetaminophen (*CRX) 10-325 MG TABLET 1 TAB PO ×2 (10:17→17:34)
--- NOTE | 2022-10-01 10:48 | PC.NURSE ---
Provided education to patient on his solumedrol and protonix that was refused and why he is prescribed them, education on accuchecks and lab draws while in the hospital and why they are important, and I educated him on why he qualifies for the bed alarm. Educated patient that he qualifies for the bed alarm because of his diuretics making him have to urinate frequently, IV pole in use for antibiotics, narcotic pain medication for leg pain, and weakness. I educated him that he needs to use call button to ask for help before ambulating. Patient got out of bed this morning and before I could bring alarm to place on bed, patient got back in bed and refused alarm. Provider aware as well
--- NOTE | 2022-10-01 12:10 | P.PNIM_ITS ---
Progress Note: A&P Assessment and Plan (1) Respiratory failure: Qualifiers: Chronicity: acute Respiratory failure complication: hypoxia Qualified Code(s): J96.01 - Acute respiratory failure with hypoxia Code(s): J96.90 - Respiratory failure, unspecified, unspecified whether with hypoxia or hypercapnia Status: Resolved Assessment and Plan: * Patient is usually on supplemental oxygen 2 L by nasal cannula as needed. * Wean oxygen to maintain O2 saturation greater than 90%. * Chest x-ray with borderline heart size and pulmonary vascular congestion. * Unable to get bilateral lower extremity Doppler ultrasounds due to the patient's body habitus. (2) CHF (congestive heart failure): Qualifiers: Heart failure chronicity: acute on chronic Heart failure type: unspecified Qualified Code(s): I50.9 - Heart failure, unspecified Code(s): I50.9 - Heart failure, unspecified Status: Acute Assessment and Plan: * BNP only slightly elevated. * Started on Bumex 2 mg IV b.i.d. and added metolazone * Daily weights, strict I&Os, fall precautions. * Echocardiogram could not determine patient's ejection fraction, very limited exam. * Keep potassium greater than 4 and serum magnesium greater than 2. * Monitor kidney function while on IV Bumex. * Scrotal elevation for scrotal edema and support. (3) COPD (chronic obstructive pulmonary disease): Qualifiers: COPD type: unspecified COPD Qualified Code(s): J44.9 - Chronic obstructive pulmonary disease, unspecified Code(s): J44.9 - Chronic obstructive pulmonary disease, unspecified Status: Acute Assessment and Plan: * Monitor Oxygen saturation, Oxygen via NC; wean oxygen as tolerated, keep SpO2 greater than 88% * Duonebz q6H and Albuterol q2H prn * Patient refuses to take steroids due to stomach upset * 09/30 patient with worsening cough and sputum production. Chest x-ray revealing atelectasis versus pneumonia versus pulmonary edema. Continue with IV diuretics and start ceftriaxone and doxycycline. Patient does have QT prolongation and is on amiodarone thus avoid QT prolonging agents. Patient is still refusing steroids. (4) Adult failure to thrive: Code(s): R62.7 - Adult failure to thrive Status: Acute Assessment and Plan: * PT OT consult * supportive care * likely secondary to patient's morbid obesity (5) Skin breakdown: Code(s): R23.8 - Other skin changes Status: Acute Assessment and Plan: * Local care * Wound care consult * Wound care believes that patient has skin breakdown is due to edema and not an acute infection. * Antibiotics discontinued at this time and miconazole cream added (6) Morbid obesity: Code(s): E66.01 - Morbid (severe) obesity due to excess calories Status: Acute Assessment and Plan: * 1800 calorie restricted diet * Lifestyle and diet modifications (7) Type 2 diabetes mellitus: Code(s): E11.9 - Type 2 diabetes mellitus without complications Status: Acute Assessment and Plan: * Insulin Lispro sliding scale, Accu-checks qAc and HS and Hold oral hypoglycemics * Initiate hypoglycemic precautions * HgbA1c 6.1 * Hold Farxiga Subjective Date/time seen: 10/01/22 12:10 Interval history: Patient states his shortness of breath improving. Explained to him why he was
--- NOTE | 2022-10-01 12:10 | PM.IMPN ---
Progress Note: A&P Assessment and Plan (1) Respiratory failure: Qualifiers: Chronicity: acute Respiratory failure complication: hypoxia Qualified Code(s): J96.01 - Acute respiratory failure with hypoxia Code(s): J96.90 - Respiratory failure, unspecified, unspecified whether with hypoxia or hypercapnia Status: Resolved Assessment and Plan: Patient is usually on supplemental oxygen 2 L by nasal cannula as needed. Wean oxygen to maintain O2 saturation greater than 90%. Chest x-ray with borderline heart size and pulmonary vascular congestion. Unable to get bilateral lower extremity Doppler ultrasounds due to the patient's body habitus. (2) CHF (congestive heart failure): Qualifiers: Heart failure chronicity: acute on chronic Heart failure type: unspecified Qualified Code(s): I50.9 - Heart failure, unspecified Code(s): I50.9 - Heart failure, unspecified Status: Acute Assessment and Plan: BNP only slightly elevated. Started on Bumex 2 mg IV b.i.d. and added metolazone Daily weights, strict I&Os, fall precautions. Echocardiogram could not determine patient's ejection fraction, very limited exam. Keep potassium greater than 4 and serum magnesium greater than 2. Monitor kidney function while on IV Bumex. Scrotal elevation for scrotal edema and support. (3) COPD (chronic obstructive pulmonary disease): Qualifiers: COPD type: unspecified COPD Qualified Code(s): J44.9 - Chronic obstructive pulmonary disease, unspecified Code(s): J44.9 - Chronic obstructive pulmonary disease, unspecified Status: Acute Assessment and Plan: Monitor Oxygen saturation, Oxygen via NC; wean oxygen as tolerated, keep SpO2 greater than 88% Duonebz q6H and Albuterol q2H prn Patient refuses to take steroids due to stomach upset 09/30 patient with worsening cough and sputum production. Chest x-ray revealing atelectasis versus pneumonia versus pulmonary edema. Continue with IV diuretics and start ceftriaxone and doxycycline. Patient does have QT prolongation and is on amiodarone thus avoid QT prolonging agents. Patient is still refusing steroids. (4) Adult failure to thrive: Code(s): R62.7 - Adult failure to thrive Status: Acute Assessment and Plan: PT OT consult supportive care likely secondary to patient's morbid obesity (5) Skin breakdown: Code(s): R23.8 - Other skin changes Status: Acute Assessment and Plan: Local care Wound care consult Wound care believes that patient has skin breakdown is due to edema and not an acute infection. Antibiotics discontinued at this time and miconazole cream added (6) Morbid obesity: Code(s): E66.01 - Morbid (severe) obesity due to excess calories Status: Acute Assessment and Plan: 1800 calorie restricted diet Lifestyle and diet modifications (7) Type 2 diabetes mellitus: Code(s): E11.9 - Type 2 diabetes mellitus without complications Status: Acute Assessment and Plan: Insulin Lispro sliding scale, Accu-checks qAc and HS and Hold oral hypoglycemics Initiate hypoglycemic precautions HgbA1c 6.1 Hold Farxiga Subjective Date/time seen: 10/01/22 12:10 Interval history: Patient states his shortness of breath improving. Explained to him why he was started on antibiotics and he was okay with this. I believe patient would benefit for 1 more day in the hospital and then possibly discharging tomorrow. He has lost approximately 15 lb since admission and his leg pain has improved as well. He is still slightly edematous but continues to improved. Patient has a problem with being on a 2 g sodium diet it does explained to him the importance of this type of diet with CHF exacerbation. He continues to refuse all Accu-Cheks, steroids, Protonix and a bed alarm. He also ref
--- NOTE | 2022-10-01 13:06 | PCOTNOTE ---
Attempted to see pt for Occupational Therapy treatment. Pt refused to participated in self care tasks, therapeutic activities, and/or UE strengthening. Pt states Not today...my stomach is messed up...besides I am going to rehab tomorrow. Pt was educated on the importance/purpose of participation in therapy however, pt continues to decline. Pt was offered assistance for repositioning in bed, pt declined. Will attempt per POC duration/frequency tomorrow.
--- NOTE | 2022-10-01 15:59 | PCPTNOTE ---
Pt refused PT today- will cont per POC
[2022-10-01] MEDS: RIVAROXABAN 20 MG TABLET PO (17:30)
[2022-10-01] MEDS: FLUTICASONE PROPIONATE 0.05% NA SPR 16 GM BTL (*BKC) 1 SPRAY NASAL (20:25)
--- NOTE | 2022-10-01 20:30 | PC.NURSE ---
Patient continues to refuse medications and care. Does not want anything to go thru his IV. States he already has taken 2 doses of antibiotics today and will not take the IV doxycycline at 0200. Patient is also refusing accu-checks because he is not a diabetic. Educated patient that it is in his best interest to take his medications so that he is healthier upon discharge. Stated that he doesn't care and to put it in the notes that he refused because he is going home tomorrow.
[2022-10-02] VITALS (18 sets, daily range): BP systolic 97–117; BP diastolic 60–90; PULSE 69–74; RESP 16–18; TEMP 36.3–36.6; O2SAT 96–100
[2022-10-02 04:37] LABS: Basophils Percent Auto 0.6 % (0.2-1.2); Eosinophils Absolute Auto 0.2 K/mm3 (0-0.3); Eosinophils Percent Auto 3.1 % (0-4.4); Hematocrit 44.1 % (42.0-52.0); Hemoglobin 13.9 g/dL (14.0-18.0); Immature Granulocyte Absolute 0.01 K/mm3 (0.00-0.031); Immature Granulocyte Percent A 0.2 % (0-0.5); Lymphocytes Absolute Auto 1.77 K/mm3 (0.9-3.2); Lymphocytes Percent Auto 34.2 % (18.3-44.2); Mean Corpuscular HGB Conc 31.5 g/dl (32-36); Mean Corpuscular Hemoglobin 28.5 pg (26-34); Mean Corpuscular Volume 90.4 fl (80-100); Mean Platelet Volume 10.2 fl (7.4-10.4); Monocytes Absolute Auto 0.8 K/mm3 (0.1-0.6); Monocytes Percent Auto 15.6 % (2.6-8.5); Neutrophils Absolute Auto 2.4 K/mm3 (1.3-6.7); Neutrophils Percent Auto 46.3 % (45.5-73.1); Platelet Count Result 184 k/mm3 (150-375); Red Blood Count 4.88 M/mm3 (4.6-6.20); Red Cell Distribution Width 15.3 % (11.5-14.5); White Blood Count 5.2 K/mm3 (4.5-10.0)
[2022-10-02 04:58] LABS: Alanine Aminotransferase 21 U/L (6-50); Albumin Level 3.4 g/dL (3.5-5.1); Alkaline Phosphatase 60 U/L (38-126); Aspartate Amino Transferase 20 U/L (17-59); Bilirubin,Total 0.5 mg/dL (0.2-1.3); Blood Urea Nitrogen 28 mg/dL (9-20); Calcium 7.5 mg/dL (8.4-10.2); Carbon Dioxide > 40 mmol/L (22-30); Chloride 93 mmol/L (98-107); Estimated CRCL calculation 100 ml/min; Estimated Glomerular Filt Rate > 60; Glucose 114 mg/dL (65-110); Potassium 3.5 mmol/L (3.4-5.0); Sodium 135 mmol/L (137-145)
[2022-10-02 05:01] LABS: NT Pro B Type Natriuretic Pept 461 pg/mL (19.9-100)
[2022-10-02] MEDS: LEVOTHYROXINE SODIUM 88 MCG TABLET PO (05:36)
[2022-10-02] MEDS: ALBUTEROL SULFATE NEB 2.5 MG/3 ML INH INHALATION ×2 (07:32→20:26)
[2022-10-02] MEDS: IPRATROPIUM BR 0.02% INH SOLN 0.5 MG/2.5 ML VIAL INHALATION ×2 (07:32→20:26)
[2022-10-02] MEDS: carvediloL 12.5 MG TABLET PO ×2 (09:46→21:31)
[2022-10-02] MEDS: AMIODARONE HCL 200 MG TABLET 400 MG BY MOUTH ×2 (09:46→18:49)
[2022-10-02] MEDS: SPIRONOLACTONE 50 MG TABLET 100 MG PO (09:46)
[2022-10-02] MEDS: ASPIRIN 81 MG ENTERIC TABLET PO (09:46)
[2022-10-02] MEDS: SACUBITRIL/VALSARTAN 49-51 MG TABLET 1 TABLET PO ×2 (09:46→18:49)
[2022-10-02] MEDS: ERYTHROMYCIN OPHTH OINTMENT 1 GM TUBE 1 APPLIC RIGHT EYE (09:46)
[2022-10-02] MEDS: MICONAZOLE NITRATE 2% CREAM 30 GM TUBE 1 APPLIC TOPICAL ×2 (09:47→21:32)
[2022-10-02] MEDS: BUMETANIDE INJ 2.5 MG/10 ML VIAL 2 MG IV PUSH (09:53)
[2022-10-02] MEDS: HYDROcodone/acetaminophen (*CRX) 10-325 MG TABLET 1 TAB PO (09:59)
--- NOTE | 2022-10-02 10:36 | PC.NURSE ---
Made patient aware that he qualifies for bed alarm because he is weak, takes norco and diuretics, is hooked up to IV antibiotics at certain times of the day, and wears PRN oxygen. Patient still refuses to get out of bed for me to place alarm under him. Educated patient on using call button and not ambulating unassisted for any reason.
--- NOTE | 2022-10-02 10:54 | PCOTNOTE ---
Attempted to see pt for Occupational Therapy treatment. Pt refused to participate in any self care, therapeutic activities, and/or Strengthening tasks or sitting in chair/EOB. Pt states this is a rest day...my legs are too weak. Pt was educated on the purpose and benefits of performing strengthening tasks even EOB or supine will improve strengthening and standing tolerance. Pt continues to refuse all tasks. Will continue per POC duration/frequency tomorrow.
--- NOTE | 2022-10-02 11:40 | P.PNIM_ITS ---
Progress Note: A&P Assessment and Plan (1) Respiratory failure: Qualifiers: Chronicity: acute Respiratory failure complication: hypoxia Qualified Code(s): J96.01 - Acute respiratory failure with hypoxia Code(s): J96.90 - Respiratory failure, unspecified, unspecified whether with hypoxia or hypercapnia Status: Resolved Assessment and Plan: * Patient is usually on supplemental oxygen 2 L by nasal cannula as needed. * Wean oxygen to maintain O2 saturation greater than 90%. * Chest x-ray with borderline heart size and pulmonary vascular congestion. * Unable to get bilateral lower extremity Doppler ultrasounds due to the patient's body habitus. (2) CHF (congestive heart failure): Qualifiers: Heart failure chronicity: acute on chronic Heart failure type: unspecified Qualified Code(s): I50.9 - Heart failure, unspecified Code(s): I50.9 - Heart failure, unspecified Status: Acute Assessment and Plan: * BNP only slightly elevated. * Daily weights, strict I&Os, fall precautions. * Echocardiogram could not determine patient's ejection fraction, very limited exam. * Keep potassium greater than 4 and serum magnesium greater than 2. * Scrotal elevation for scrotal edema and support. * Patient refused IV medications and requested to go back on p.o. Bumex (3) COPD (chronic obstructive pulmonary disease): Qualifiers: COPD type: unspecified COPD Qualified Code(s): J44.9 - Chronic obstructive pulmonary disease, unspecified Code(s): J44.9 - Chronic obstructive pulmonary disease, unspecified Status: Acute Assessment and Plan: * Monitor Oxygen saturation, Oxygen via NC; wean oxygen as tolerated, keep SpO2 greater than 88% * Duonebz q6H and Albuterol q2H prn * Patient refuses to take steroids due to stomach upset * 09/30 patient with worsening cough and sputum production. Chest x-ray revealing atelectasis versus pneumonia versus pulmonary edema. Continue ceftriaxone and change doxycycline to p.o. Patient does have QT prolongation and is on amiodarone thus avoid QT prolonging agents. Patient is still refusing steroids. (4) Adult failure to thrive: Code(s): R62.7 - Adult failure to thrive Status: Acute Assessment and Plan: * PT OT consult * supportive care * likely secondary to patient's morbid obesity (5) Skin breakdown: Code(s): R23.8 - Other skin changes Status: Acute Assessment and Plan: * Local care * Wound care consult * Wound care believes that patient has skin breakdown is due to edema and not an acute infection. * Antibiotics discontinued at this time and miconazole cream added (6) Morbid obesity: Code(s): E66.01 - Morbid (severe) obesity due to excess calories Status: Acute Assessment and Plan: * 1800 calorie restricted diet * Lifestyle and diet modifications (7) Type 2 diabetes mellitus: Code(s): E11.9 - Type 2 diabetes mellitus without complications Status: Acute Assessment and Plan: * Insulin Lispro sliding scale, Accu-checks qAc and HS and Hold oral hypog lycemics * Initiate hypoglycemic precautions * HgbA1c 6.1 * Hold Farxiga Subjective Date/time seen: 10/02/22 11:40 Interval history: Patient states that he is breathing much better. Would like to keep him more day for antibiotic therapy and attempt to [facility]
--- NOTE | 2022-10-02 11:40 | PM.IMPN ---
Progress Note: A&P Assessment and Plan (1) Respiratory failure: Qualifiers: Chronicity: acute Respiratory failure complication: hypoxia Qualified Code(s): J96.01 - Acute respiratory failure with hypoxia Code(s): J96.90 - Respiratory failure, unspecified, unspecified whether with hypoxia or hypercapnia Status: Resolved Assessment and Plan: Patient is usually on supplemental oxygen 2 L by nasal cannula as needed. Wean oxygen to maintain O2 saturation greater than 90%. Chest x-ray with borderline heart size and pulmonary vascular congestion. Unable to get bilateral lower extremity Doppler ultrasounds due to the patient's body habitus. (2) CHF (congestive heart failure): Qualifiers: Heart failure chronicity: acute on chronic Heart failure type: unspecified Qualified Code(s): I50.9 - Heart failure, unspecified Code(s): I50.9 - Heart failure, unspecified Status: Acute Assessment and Plan: BNP only slightly elevated. Daily weights, strict I&Os, fall precautions. Echocardiogram could not determine patient's ejection fraction, very limited exam. Keep potassium greater than 4 and serum magnesium greater than 2. Scrotal elevation for scrotal edema and support. Patient refused IV medications and requested to go back on p.o. Bumex (3) COPD (chronic obstructive pulmonary disease): Qualifiers: COPD type: unspecified COPD Qualified Code(s): J44.9 - Chronic obstructive pulmonary disease, unspecified Code(s): J44.9 - Chronic obstructive pulmonary disease, unspecified Status: Acute Assessment and Plan: Monitor Oxygen saturation, Oxygen via NC; wean oxygen as tolerated, keep SpO2 greater than 88% Duonebz q6H and Albuterol q2H prn Patient refuses to take steroids due to stomach upset 09/30 patient with worsening cough and sputum production. Chest x-ray revealing atelectasis versus pneumonia versus pulmonary edema. Continue ceftriaxone and change doxycycline to p.o. Patient does have QT prolongation and is on amiodarone thus avoid QT prolonging agents. Patient is still refusing steroids. (4) Adult failure to thrive: Code(s): R62.7 - Adult failure to thrive Status: Acute Assessment and Plan: PT OT consult supportive care likely secondary to patient's morbid obesity (5) Skin breakdown: Code(s): R23.8 - Other skin changes Status: Acute Assessment and Plan: Local care Wound care consult Wound care believes that patient has skin breakdown is due to edema and not an acute infection. Antibiotics discontinued at this time and miconazole cream added (6) Morbid obesity: Code(s): E66.01 - Morbid (severe) obesity due to excess calories Status: Acute Assessment and Plan: 1800 calorie restricted diet Lifestyle and diet modifications (7) Type 2 diabetes mellitus: Code(s): E11.9 - Type 2 diabetes mellitus without complications Status: Acute Assessment and Plan: Insulin Lispro sliding scale, Accu-checks qAc and HS and Hold oral hypoglycemics Initiate hypoglycemic precautions HgbA1c 6.1 Hold Farxiga Subjective Date/time seen: 10/02/22 11:40 Interval history: Patient states that he is breathing much better. Would like to keep him more day for antibiotic therapy and attempt to remove more fluid off of him. Patient should be able to be discharged tomorrow if nothing changes. He states that his cough has improved he has no true producing green sputum. Denies any nausea vomiting. Edema in the scrotum has much improved. Exam Narrative: GENERAL: Comfortable, no acute distress, morbid obesity HENMT: moist mucous membranes EYES: EOM intact b/l NECK: no lymphadenopathy RESPIRATORY: Diffuse expiratory wheezes CARDIO: RRR GI: soft, nontender, bowel sounds present SKIN: no rashes EXTREM
--- NOTE | 2022-10-02 14:19 | PCPTNOTE ---
Attempted to see pt for physical therapy- pt declined stating it's Monday, I don't work on Sundays, it's a day of rest
[2022-10-02] MEDS: RIVAROXABAN 20 MG TABLET PO (18:49)
[2022-10-02] MEDS: FLUTICASONE/SALMETEROL 115-21 MCG INHALER 1 PUFF 2 PUFF INHALATION (20:27)
[2022-10-02] MEDS: FLUTICASONE PROPIONATE 0.05% NA SPR 16 GM BTL (*BKC) 1 SPRAY NASAL (21:32)
[2022-10-03] VITALS (13 sets, daily range): BP systolic 101–129; BP diastolic 55–71; PULSE 70–87; RESP 14–20; TEMP 34.9–36.1; O2SAT 95–100
[2022-10-03] MEDS: LEVOTHYROXINE SODIUM 88 MCG TABLET PO (05:38)
[2022-10-03] MEDS: DOXYCYCLINE HYCLATE 100 MG TABLET PO (08:41)
[2022-10-03] MEDS: carvediloL 12.5 MG TABLET PO (08:42)
[2022-10-03] MEDS: AMIODARONE HCL 200 MG TABLET 400 MG BY MOUTH ×2 (08:42→16:41)
[2022-10-03] MEDS: BUMETANIDE 1 MG TABLET 2 MG PO (08:42)
[2022-10-03] MEDS: SPIRONOLACTONE 50 MG TABLET 100 MG PO (08:43)
[2022-10-03] MEDS: SACUBITRIL/VALSARTAN 49-51 MG TABLET 1 TABLET PO ×2 (08:43→16:38)
[2022-10-03] MEDS: ASPIRIN 81 MG ENTERIC TABLET PO (08:43)
[2022-10-03] MEDS: MICONAZOLE NITRATE 2% CREAM 30 GM TUBE 1 APPLIC TOPICAL (08:45)
[2022-10-03] MEDS: ERYTHROMYCIN OPHTH OINTMENT 1 GM TUBE 1 APPLIC RIGHT EYE (08:45)
[2022-10-03] MEDS: HYDROcodone/acetaminophen (*CRX) 10-325 MG TABLET 1 TAB PO (08:50)
--- NOTE | 2022-10-03 09:20 | PCOTNOTE ---
Patient refused treatment this session due to I don't feel good My back hurts Patient is aware that he refused twice over the weekend and is fine that he is refusing again today.
[2022-10-03 10:23] LABS: Basophils Percent Auto 0.7 % (0.2-1.2); Eosinophils Absolute Auto 0.1 K/mm3 (0-0.3); Eosinophils Percent Auto 3.1 % (0-4.4); Hematocrit 45.7 % (42.0-52.0); Hemoglobin 14.3 g/dL (14.0-18.0); Immature Granulocyte Absolute 0.02 K/mm3 (0.00-0.031); Immature Granulocyte Percent A 0.4 % (0-0.5); Lymphocytes Absolute Auto 1.49 K/mm3 (0.9-3.2); Lymphocytes Percent Auto 32.7 % (18.3-44.2); Mean Corpuscular HGB Conc 31.3 g/dl (32-36); Mean Corpuscular Hemoglobin 28.1 pg (26-34); Mean Platelet Volume 10.2 fl (7.4-10.4); Monocytes Absolute Auto 0.5 K/mm3 (0.1-0.6); Monocytes Percent Auto 11.4 % (2.6-8.5); Neutrophils Absolute Auto 2.4 K/mm3 (1.3-6.7); Neutrophils Percent Auto 51.7 % (45.5-73.1); Platelet Count Result 183 k/mm3 (150-375); Red Blood Count 5.08 M/mm3 (4.6-6.20); Red Cell Distribution Width 15.3 % (11.5-14.5); White Blood Count 4.6 K/mm3 (4.5-10.0)
[2022-10-03 10:36] LABS: Alanine Aminotransferase 23 U/L (6-50); Albumin Level 3.5 g/dL (3.5-5.1); Alkaline Phosphatase 54 U/L (38-126); Anion Gap 0 mmol/L (8-16); Aspartate Amino Transferase 20 U/L (17-59); Bilirubin,Total 0.6 mg/dL (0.2-1.3); Blood Urea Nitrogen 27 mg/dL (9-20); Calcium 7.9 mg/dL (8.4-10.2); Carbon Dioxide 39 mmol/L (22-30); Chloride 93 mmol/L (98-107); Estimated CRCL calculation 124 ml/min; Estimated Glomerular Filt Rate > 60; Glucose 149 mg/dL (65-110); Potassium 3.9 mmol/L (3.4-5.0); Sodium 132 mmol/L (137-145)
--- NOTE | 2022-10-03 10:46 | P.DS_ITS ---
DS: Admitting Diagnosis Discharge Date 10/03/22 Admitting Diagnosis CHF exacerbation DS: Discharge Diagnosis Discharge Diagnosis (1) Respiratory failure: Qualifiers: Chronicity: acute Respiratory failure complication: hypoxia Qualified Code(s): J96.01 - Acute respiratory failure with hypoxia Code(s): J96.90 - Respiratory failure, unspecified, unspecified whether with hypoxia or hypercapnia Status: Resolved Assessment and Plan: * Patient is usually on supplemental oxygen 2 L by nasal cannula as needed. * Wean oxygen to maintain O2 saturation greater than 90%. * Chest x-ray with borderline heart size and pulmonary vascular congestion. * Unable to get bilateral lower extremity Doppler ultrasounds due to the patient's body habitus. (2) CHF (congestive heart failure): Qualifiers: Heart failure chronicity: acute on chronic Heart failure type: unspecified Qualified Code(s): I50.9 - Heart failure, unspecified Code(s): I50.9 - Heart failure, unspecified Status: Acute Assessment and Plan: * BNP only slightly elevated. * Daily weights, strict I&Os, fall precautions. * Echocardiogram could not determine patient's ejection fraction, very limited exam. * Keep potassium greater than 4 and serum magnesium greater than 2. * Scrotal elevation for scrotal edema and support. * Patient refused IV medications and requested to go back on p.o. Bumex (3) COPD (chronic obstructive pulmonary disease): Qualifiers: COPD type: unspecified COPD Qualified Code(s): J44.9 - Chronic obstructive pulmonary disease, unspecified Code(s): J44.9 - Chronic obstructive pulmonary disease, unspecified Status: Acute Assessment and Plan: * Monitor Oxygen saturation, Oxygen via NC; wean oxygen as tolerated, keep SpO2 greater than 88% * Duonebz q6H and Albuterol q2H prn * Patient refuses to take steroids due to stomach upset * 09/30 patient with worsening cough and sputum production. Chest x-ray revealing atelectasis versus pneumonia versus pulmonary edema. Continue ceftriaxone and change doxycycline to p.o. Patient does have QT prolongation and is on amiodarone thus avoid QT prolonging agents. Patient refusing steroids. * 10/03 will transition patient to p.o. antibiotics for total 7 days. (4) Adult failure to thrive: Code(s): R62.7 - Adult failure to thrive Status: Acute Assessment and Plan: * PT OT consult * supportive care * likely secondary to patient's morbid obesity (5) Skin breakdown: Code(s): R23.8 - Other skin changes Status: Acute Assessment and Plan: * Local care * Wound care consult * Wound care believes that patient has skin breakdown is due to edema and not an acute infection. * Antibiotics discontinued at this time and miconazole cream added (6) Morbid obesity: Code(s): E66.01 - Morbid (severe) obesity due to excess calories Status: Acute Assessment and Plan: * 1800 calorie restricted diet * Lifestyle and diet modifications (7) Type 2 diabetes mellitus: Code(s): E11.9 - Type 2 diabetes mellitus without complications Status: Acute Assessment and Plan: * Insulin Lispro sliding scale, Accu-checks qAc and HS and Hold oral hypoglycemics * Initiate hypoglycemic precautions * HgbA1c 6.1 * Hold Farxiga DS: Summary Hospital Course
--- NOTE | 2022-10-03 10:46 | PM.DS ---
DS: Admitting Diagnosis Discharge Date 10/03/22 Admitting Diagnosis CHF exacerbation DS: Discharge Diagnosis Discharge Diagnosis (1) Respiratory failure: Qualifiers: Chronicity: acute Respiratory failure complication: hypoxia Qualified Code(s): J96.01 - Acute respiratory failure with hypoxia Code(s): J96.90 - Respiratory failure, unspecified, unspecified whether with hypoxia or hypercapnia Status: Resolved Assessment and Plan: Patient is usually on supplemental oxygen 2 L by nasal cannula as needed. Wean oxygen to maintain O2 saturation greater than 90%. Chest x-ray with borderline heart size and pulmonary vascular congestion. Unable to get bilateral lower extremity Doppler ultrasounds due to the patient's body habitus. (2) CHF (congestive heart failure): Qualifiers: Heart failure chronicity: acute on chronic Heart failure type: unspecified Qualified Code(s): I50.9 - Heart failure, unspecified Code(s): I50.9 - Heart failure, unspecified Status: Acute Assessment and Plan: BNP only slightly elevated. Daily weights, strict I&Os, fall precautions. Echocardiogram could not determine patient's ejection fraction, very limited exam. Keep potassium greater than 4 and serum magnesium greater than 2. Scrotal elevation for scrotal edema and support. Patient refused IV medications and requested to go back on p.o. Bumex (3) COPD (chronic obstructive pulmonary disease): Qualifiers: COPD type: unspecified COPD Qualified Code(s): J44.9 - Chronic obstructive pulmonary disease, unspecified Code(s): J44.9 - Chronic obstructive pulmonary disease, unspecified Status: Acute Assessment and Plan: Monitor Oxygen saturation, Oxygen via NC; wean oxygen as tolerated, keep SpO2 greater than 88% Duonebz q6H and Albuterol q2H prn Patient refuses to take steroids due to stomach upset 09/30 patient with worsening cough and sputum production. Chest x-ray revealing atelectasis versus pneumonia versus pulmonary edema. Continue ceftriaxone and change doxycycline to p.o. Patient does have QT prolongation and is on amiodarone thus avoid QT prolonging agents. Patient refusing steroids. 10/03 will transition patient to p.o. antibiotics for total 7 days. (4) Adult failure to thrive: Code(s): R62.7 - Adult failure to thrive Status: Acute Assessment and Plan: PT OT consult supportive care likely secondary to patient's morbid obesity (5) Skin breakdown: Code(s): R23.8 - Other skin changes Status: Acute Assessment and Plan: Local care Wound care consult Wound care believes that patient has skin breakdown is due to edema and not an acute infection. Antibiotics discontinued at this time and miconazole cream added (6) Morbid obesity: Code(s): E66.01 - Morbid (severe) obesity due to excess calories Status: Acute Assessment and Plan: 1800 calorie restricted diet Lifestyle and diet modifications (7) Type 2 diabetes mellitus: Code(s): E11.9 - Type 2 diabetes mellitus without complications Status: Acute Assessment and Plan: Insulin Lispro sliding scale, Accu-checks qAc and HS and Hold oral hypoglycemics Initiate hypoglycemic precautions HgbA1c 6.1 Hold Farxiga DS: Summary Hospital Course Hospital Course: This is a 62-year-old male with past medical history of significant morbid obesity, AFib, pacemaker in-situ, type 2 diabetes, asthma, congestive heart failure and COPD the presented to the ED on 09/26/2022 due to worsening lower extremity edema and leg pain. He did complain of intermittent chest pain as well as some shortness of breath. It was found to have a BNP of 1580, troponins x2 negative and chest x-ray significant for pulmonary vascular congestion. He was found to have a skin tear and ulcer of the r
--- NOTE | 2022-10-03 11:16 | PCPTNOTE ---
Patient refused treatment this session. Patient states he is being discharged today.
--- NOTE | 2022-10-03 12:45 | PC.NURSE ---
Patient refusing student nurse to check scheduled blood sugar. Educated on importance of checking blood sugars at meals. Patient still refused. Doctor aware of refusal.
[2022-10-03 12:57] LABS: SARS-CoV-2 RNA PCR Negative (Negative)
--- NOTE | 2022-10-03 15:18 | PC.NURSE ---
Reviewed assessment placed by Gabrielle Stanley Student nurse of [facility]. Agree with assessment. Medications passed by Gabrielle under supervision of this bond underwriter and assigned RN. Reviewed chart with Gabrielle and discussed assessments and any interventions. Patient is non-compliant with most care and reluctant to allow assessment. RN has been given report and patient is to be discharge to a facility today.
[2022-10-03] MEDS: RIVAROXABAN 20 MG TABLET PO (16:38)
== END 2022-10-03 17:30 | DRG 291 ==
LOC: ANHED 20:20 → ANH2MED 21:21
PROVIDERS: Emergency Medicine; Admitting Provider Internal Medicine; Emergency Provider Emergency Medicine; Visit Provider Internal Medicine Critical Care Medicine
DX: I50.9 Heart failure, unspecified (principal); J18.9 Pneumonia, unspecified organism; J96.21 Acute and chronic respiratory failure with hypoxia; Z68.45 Body mass index [BMI] 70 or greater, adult; J44.0 Chronic obstructive pulmonary disease with (acute) lower respiratory infection; J98.11 Atelectasis; L97.919 Non-pressure chronic ulcer of unspecified part of right lower leg with unspecified severity; R62.7 Adult failure to thrive; R23.8 Other skin changes; Z20.822 Contact with and (suspected) exposure to COVID-19; E66.01 Morbid (severe) obesity due to excess calories; E11.9 Type 2 diabetes mellitus without complications; I48.91 Unspecified atrial fibrillation; R94.31 Abnormal electrocardiogram [ECG] [EKG]; Z53.29 Procedure and treatment not carried out because of patient's decision for other reasons; Z79.01 Long term (current) use of anticoagulants
CPT/HCPCS: 36415; 71045; 80053; 82948; 83036; 83690; 83880; 84484; 85025; 85027; 85610; 85730; 87635; 93005; 93306; 94640; 96374; 97110; 97161; 97166; 97530; 97535; 99285; A9270; J0690; J0696; J2920; J2930